=== PATIENT | female | born 1980 | race Caucasian/White ===

== ENCOUNTER 2019-03-12 01:48 | Emergency (ER) | payer BC, MEDICAID ==
[~2019-03-12] VITALS: Ht 149.9 cm; Wt 81.2 kg
[2019-03-12 02:15] VITALS: BP_SYST 116
--- NOTE | 2019-03-12 04:12 | NUR ---
Pt ambulatory to bed 8 for evaluation
--- NOTE | 2019-03-12 04:22 | NUR ---
ER at bedside examining patient.
--- NOTE | 2019-03-12 04:22 | NUR ---
Pt brought in by self. Pt awake alert, oriented x4 Pt states that she has had new onset of distributed rash on thights, legs, and upper arms for the past approx 24 hours. Pt states that she is unsure of the cause. Pt denies chest pain, nausea, vomiting, diarrhea, shortness of breath. Pt denies any other medical complaint at this time. Pt states that "I am in a hurry, so please hurry up". Pt displays no signs of acute distress at this time. VSS
[2019-03-12] MEDS ORDERED: methylPREDNISolone SOD SUCC/PF 62.5 MG/ML VIAL IM ONE (04:30)
[2019-03-12 04:50] VITALS: BP_SYST 118
--- NOTE | 2019-03-12 04:50 | NUR ---
Patient given written and verbal discharge instructions and verbalizes understanding. ER MD discussed with patient the results and treatment provided. Patient in stable condition. ID arm band removed. Rx of Benadryl given. Patient educated to follow up with PMD. Pain Scale 0/10 Opportunity for questions provided and answered. Medication side effect fact sheet provided.
== END 2019-03-12 04:50 | disposition home or self-care (01) ==
LOC: SED 01:48
DX: T78.1XXA Other adverse food reactions, not elsewhere classified, initial encounter (principal); L50.9 Urticaria, unspecified; X58.XXXA Exposure to other specified factors, initial encounter
CPT/HCPCS: 96372; 99283; J2930

== ENCOUNTER 2019-09-23 20:39 | Emergency (ER) | payer MEDICAID ==
[~2019-09-23] VITALS: Ht 149.9 cm; Wt 77.1 kg
[2019-09-23 20:45] VITALS: BP_SYST 114
--- NOTE | 2019-09-23 20:45 | NUR ---
Patient triaged and placed in waiting room. VSS and patient appears in no acute distress at this time. Accompanied by mother, awaiting available bed, and MD notified of need for MSE.
--- NOTE | 2019-09-23 22:44 | NUR ---
Patient to ER CHAIR for evaluation.Dr Rasheed notified.
--- NOTE | 2019-09-23 23:12 | NUR ---
CELESTINA MONROE at chair side examining patient.
--- NOTE | 2019-09-23 23:13 | NUR ---
CELESTINA Ventura examining patient.
[2019-09-23] MEDS ORDERED: IBUPROFEN 800 MG TABLET PO ONE (23:30)
[2019-09-23 23:38] VITALS: BP_SYST 121
--- NOTE | 2019-09-23 23:38 | NUR ---
Patient given written and verbal discharge instructions and verbalizes understanding. ER MD discussed with patient the results and treatment provided. Patient in stable condition. ID arm band removed. Rx of MOTRIN given. Patient educated on pain management and to follow up with PMD. Pain Scale 7/10. Opportunity for questions provided and answered. Medication side effect fact sheet provided.
== END 2019-09-23 23:38 | disposition home or self-care (01) ==
LOC: SED 20:39
DX: S93.691A Other sprain of right foot, initial encounter (principal); X50.0XXA Overexertion from strenuous movement or load, initial encounter; Y93.89 Activity, other specified; Y92.89 Other specified places as the place of occurrence of the external cause; Y99.8 Other external cause status
CPT/HCPCS: 99284